=== PATIENT | male | born 1950 | race Caucasian/White ===

== ENCOUNTER 2017-04-28 06:28 | Day surgery (SDC) | payer OTHER ==
[2017-04-27 12:40] VITALS: BMI 29.7
[2017-04-28] MEDS ORDERED: PROPOFOL 20 ML ONE ×2 (08:12)
[2017-04-28] MEDS ORDERED: MIDAZOLAM HCL 2 MG/2 ML SINGLE DOSE VIAL ONE (08:13)
[2017-04-28] MEDS ORDERED: IBUPROFEN 800 MG/8 ML IJ IVPB ONE (08:18)
[2017-04-28] MEDS ORDERED: DESFLURANE GAS 240 ML BOTTLE IH ONE (08:18)
[2017-04-28] MEDS ORDERED: LIDOCAINE 1%/EPI 1:100000 (20 ML MULTI DOSE VIAL) ONE (08:22)
[2017-04-28] MEDS ORDERED: BUPIVACAINE HCL/PF 0.5% (5MG/ML) 10 ML VIAL ONE (08:23)
--- NOTE | 2017-04-28 08:25 | HP ---
[facility] - Chief Complaint Chief Complaint: left knee pain History Source: Patient - Past Medical History Allergies/Adverse Reactions: Allergies Allergy/AdvReac Type Severity Reaction Status Date / Time No Known Allergies Allergy Verified 04/27/17 12:31 - Current Medications Current Medications: Home Medications Medication Instructions Recorded Amlodipine Besylate [Norvasc -] 2.5 mg PO DAILY 04/27/17 Aspirin [ASA -] 81 mg PO DAILY 04/27/17 Fenofibrate 160 mg PO DAILY 04/27/17 [facility]ellite Physical Exam - Physical Examination Vital Signs: Vital Signs Period Temp Pulse Resp BP Sys/[place] Pulse Ox Last 24 Hr 98.1 F-98.1 F 73-73 16-16 150-150/77-77 97 Extremities: Other (+ joint line tenderness) [facility] Impression/Plan - Impression/Plan Impression: internal derangement left knee Operative Procedure: arthroscopy left knee Date to be Performed: 04/28/17
[2017-04-28] MEDS ORDERED: DEXAMETHASONE SOD PHOSPHATE 4 MG/1 ML VIAL ONE (08:46)
[2017-04-28] MEDS ORDERED: BUPIVACAINE HCL/PF (5 MG/ML) 30 ML VIAL IJ ONE (08:49)
[2017-04-28] MEDS ORDERED: LIDOCAINE 1%/EPI 1:100000 (20 ML MULTI DOSE VIAL) PNB ONE (08:50)
--- NOTE | 2017-04-28 08:57 | OP ---
Operative Note - Note: Operative Date: 04/28/17 Pre-Operative Diagnosis: INTERNAL DERANGEMENT LEFT KNEE Operation: ARTHROSCOPY LEFT KNEE WITH PARTIAL LATERAL MENISCECTOMY Post-Operative Diagnosis: Same as Pre-op Surgeon: Zafar Ramirez Anesthesia: General Operative Report Dictated: Yes
[2017-04-28] MEDS ORDERED: ONDANSETRON 4 MG/2 ML VIAL IVPUSH PRN (09:06)
[2017-04-28] MEDS ORDERED: oxyCODONE HCL 5 MG TABLET PO PRN (09:06)
[2017-04-28] MEDS ORDERED: LACTATED RINGERS SOLUTION 1,000 ML IV SCH (09:15)
[2017-04-28 10:51] VITALS: TEMP 98
[2017-04-28 13:02] VITALS: BP 140/72; PULSE 92
--- NOTE | 2017-04-28 16:38 | OP ---
DATE OF OPERATION: 04/28/2017 PREOPERATIVE DIAGNOSIS: Internal derangement of left knee. POSTOPERATIVE DIAGNOSIS: Internal derangement of left knee. PROCEDURE: Arthroscopy, left knee. Partial lateral meniscectomy. SURGEON: Zafar Ramirez MD ANESTHESIA: General with LMA. CLOSURE: 4-0 nylon COMPLICATIONS: None. CONDITION: To recovery room in stable condition. DESCRIPTION OF OPERATIVE PROCEDURE: The patient taken to the operating room on April 28, 2017. General anesthesia with LMA was administered by the anesthesiologist. Left lower extremity was prepped and draped in the usual sterile fashion. The medial and lateral infrapatellar portal sites were inflated with 1% lidocaine with epinephrine, and both portals were then made with a 15-blade for blunt trocar. Scope was placed through the lateral patellar portal into the infrapatellar pouch. The knee was inflated with a cocktail of 10 mL of 1% Xylocaine, 10 mL of 0.5% Marcaine, 20 mL of arthroscopic saline. After a few minutes to allow the anesthetic to work, the procedure was commenced. The medial and lateral gutters were visualized to be clean. The undersurface of the patella and trochlea were visualized to be intact. With valgus stress on the knee, the medial compartment was entered, medial meniscus visualized, probed, found to be intact. The medial femoral condyle was run, found to be intact, as was the medial tibial plateau. At 90 degrees the ACL was visualized, probed, found to be intact. In the figure 4 position the lateral compartment was entered. Lateral meniscus was found to have a complex tear. The entire posterior horn was shredded and flipped. That was debrided completely. The anterior portion was intact, and that was balanced until a stable remnant anteriorly was obtained. The tibial plateau was found to have extensive grade 4 changes down to bone. Any loose articular cartilage was debrided with a shaver on its rims. The femoral condyle also had significant changes as well. The knee was irrigated with copious amounts of irrigation. The portals were closed using 4-0 nylon. Prior to closure, 20 mL of 0.5% Marcaine was infused through the scope trocar for postoperative analgesia. A sterile pressure dressing was placed over the knee, patient awakened and transferred to recovery in stable condition. No complications. Estimated blood loss negligible. Shaniqua [id number]
--- NOTE | 2017-04-29 14:59 | PATH ---
Surgical Pathology Report Patient Name: GOLDEN LONG [facility]. Rec. #: [id number] /Age/Gender: 1950 (Age: 66) / M Account: [id number] Location: [facility] Taken: 04/28/2017 Received: 04/28/2017 Reported: 04/29/2017 Physicians: Zafar Ramirez M.D. Specimen(s) Received LEFT KNEESHAVINGS Clinical History Left knee tear Final Diagnosis KNEE, LEFT, ARTHROSCOPIC SHAVING: FIBROCARTILAGE WITH MYXOID DEGENERATIVE CHANGES, ALONG WITH PORTIONS OF SYNOVIUM AND HYALINE CARTILAGE. CALCIFIED MATERIAL MORPHOLOGICALLY CONSISTENT WITH PSEUDOGOUT (CPPD) PRESENT. Electronically Signed Golden Quiros M.D. Gross Description Received in formalin, labeled "left knee shavings," is a 3.5 x 3.5 x 0.8 cm. aggregate of trejo-yellow soft tissue fragments. A metals sales representative portion is submitted in one cassette. /04/28/2017 saudi04/28/2017
== END 2017-04-28 12:00 | disposition home or self-care (01) ==
LOC: JASU-SURG 06:28
PROVIDERS: ATTEND Orthopaedic Surgery
PROC: 0SBD4ZZ Excision of Left Knee Joint, Percutaneous Endoscopic Approach (ICD-10-PCS; principal; 2017-04-28 08:00)
DX: S83.272A Complex tear of lateral meniscus, current injury, left knee, initial encounter (principal); X58.XXXA Exposure to other specified factors, initial encounter; Y93.89 Activity, other specified; Y92.9 Unspecified place or not applicable; Y99.9 Unspecified external cause status
CPT/HCPCS: 88304-TC; 94760

== ENCOUNTER 2022-01-12 04:25 | Day surgery (SDC) | payer OTHER, BC ==
[2022-01-12 08:51] VITALS: TEMP 98.2
[2022-01-12 10:42] VITALS: BP 141/54; PULSE 75; RESP 23
== END 2022-01-12 11:10 | disposition home or self-care (01) ==
LOC: JASU-ENDO 04:25
PROVIDERS: ATTEND Internal Medicine Gastroenterology
PROC: 0DBL8ZX Excision of Transverse Colon, Via Natural or Artificial Opening Endoscopic, Diagnostic (ICD-10-PCS; 2022-01-12)
PROC: 0DBH8ZX Excision of Cecum, Via Natural or Artificial Opening Endoscopic, Diagnostic (ICD-10-PCS; principal; 2022-01-12 10:00)
DX: Z12.11 Encounter for screening for malignant neoplasm of colon (principal); D12.0 Benign neoplasm of cecum; D12.3 Benign neoplasm of transverse colon; K57.30 Diverticulosis of large intestine without perforation or abscess without bleeding; K64.8 Other hemorrhoids; Z86.010 Personal history of colon polyps; Z80.0 Family history of malignant neoplasm of digestive organs; I10 Essential (primary) hypertension
CPT/HCPCS: 82962; 88305-TC